=== PATIENT | male | born 1960 | race Two or more races ===

== ENCOUNTER 2019-04-27 17:41 | Inpatient (IN) | payer SELFPAY ==
[~2019-04-27] VITALS: Ht 180.3 cm; Wt 98.0 kg
[2019-04-27] MEDS ORDERED: ASPIRIN 325 MG TABLET PO ONE (18:00)
--- NOTE | 2019-04-27 18:00 | NUR ---
"CP started 1H ago going to left-back and jaw" PATIENT A/OX4, BREATHING EVEN AND UNLABORED, NO SOB NOTED, C/O CHEST PAIN. CHANGED INTO A GOWN, ATTACHED TO THE HVAC DESIGN ENGINEER.
[2019-04-27] MEDS ORDERED: METO25TA20 PO (18:28)
[2019-04-27] MEDS ORDERED: ATOR40TA PO (18:28)
[2019-04-27] MEDS ORDERED: LISI-603 PO (18:28)
[2019-04-27] MEDS ORDERED: ESOM40CA PO (18:28)
[2019-04-27] MEDS ORDERED: APIX5TAB PO (18:28)
[2019-04-27] MEDS ORDERED: TAMS-12 PO (18:28)
[2019-04-27] MEDS ORDERED: FURO-145 PO (18:28)
[2019-04-27] MEDS ORDERED: ASPI-1169 PO (18:28)
[2019-04-27] MEDS ORDERED: OXYC20TA58 PO (18:28)
[2019-04-27] MEDS ORDERED: CLOP75TA15 PO (18:28)
[2019-04-27] MEDS ORDERED: GABA-534 PO (18:28)
[2019-04-27] MEDS ORDERED: ASPIRIN 81 MG TAB.CHEW ONE (18:37)
--- NOTE | 2019-04-27 18:40 | NUR ---
UNABLE TO INSERT PERIPHERAL IV LINE, ATTEMPTED X3, STILL UNSUCCESSFUL, REQUESTED FOR A MIDLINE NURSE, PER NURSING CUTTING AND CREASING PRESS OPERATOR, MIDLINE NURSE IS NOT AVAILABLE UNTIL 11PM.
--- NOTE | 2019-04-27 18:57 | NUR ---
PER PATIENT, HE TOOK ASA 81MG THIS AM. INFORMED DR. MORALES, AND GAVE VERBAL ORDER TO GIVE ASA 162MG.
[2019-04-27] MEDS ORDERED: ASPIRIN 81 MG TAB.CHEW PO ONE (19:00)
--- NOTE | 2019-04-27 19:19 | NUR ---
ENDORSED TO KUN MCCOY
--- NOTE | 2019-04-27 19:46 | NUR ---
UNABLE TO OBTAIN IV ACCESS AT THIS TIME. AWARE.
--- NOTE | 2019-04-27 19:51 | NUR ---
BLOOD PRESSURE 67/46. MD AWARE.
[2019-04-27] MEDS ORDERED: ONDANSETRON HCL/PF 4 MG/2 ML VIAL IVP PRN (20:00)
[2019-04-27] MEDS ORDERED: HYDROCODONE/APAP 5/325MG 1 EACH TABLET PO PRN (20:00)
[2019-04-27] MEDS ORDERED: MAG HYDROX/AL HYDROX/SIMETH 30 ML UDC PO PRN (20:00)
[2019-04-27] MEDS ORDERED: Z GUARD REMEDY 2 OZ OINT TP PRN (20:00)
[2019-04-27] MEDS ORDERED: ACETAMINOPHEN 325 MG TABLET PO PRN (20:00)
[2019-04-27] MEDS ORDERED: MAGNESIUM HYDROXIDE 30 ML UDC PO PRN (20:00)
--- NOTE | 2019-04-27 20:15 | NUR ---
BLOOD DRAWN AND GIVEN TO LAB
--- NOTE | 2019-04-27 20:18 | NUR ---
BED ASSIGNMENT 309-1
[2019-04-27 20:22] LABS: BASOPHILS # (AUTO) 0.2 /CMM (0.0-0.2); BASOPHILS % (AUTO) 2.3 % (0.0-2.0); EOSINOPHILS % (AUTO) 12.8 % (0.0-6.0); HEMATOCRIT 31 % (39-51); HEMOGLOBIN 9.5 g/dL (13.5-17.5); LYMPHOCYTES # (AUTO) 1.7 /CMM (0.8-4.8); LYMPHOCYTES % (AUTO) 24.5 % (20.0-44.0); MEAN CORPUSCULAR HGB CONC 31 g/dl (31.0-36.0); MEAN CORPUSCULAR VOLUME 73 fL (80-96); MONOCYTES # (AUTO) 0.8 /CMM (0.1-1.30); MONOCYTES % (AUTO) 11.8 % (2.0-12.0); NEUTROPHILS # (AUTO) 3.4 /CMM (1.8-8.9); NEUTROPHILS % (AUTO) 48.6 % (43.0-81.0); PLATELET COUNT (AUTO) 232 /CMM (150-450); RED BLOOD CELL COUNT(AUTO) 4.16 MIL/uL (4.5-6.0)
[2019-04-27 20:26] LABS: CALCIUM, SERUM 8.4 mg/dL (8.5-10.1); CARBON DIOXIDE 30 mmol/L (21-32); CHLORIDE 99 mmol/L (98-107); CREATININE 2.6 mg/dL (0.6-1.3); GLUCOSE 122 mg/dL (74-106); POTASSIUM 3.4 mmol/L (3.5-5.1); SODIUM SERUM 139 mmol/L (136-145); UREA NITROGEN, BLOOD 30 mg/dL (7-18)
[2019-04-27] MEDS ORDERED: IV NS 0.9% 1,000 ML BAG IV ONE (20:30)
[2019-04-27 20:48] LABS: NEUTROPHILS % (MANUAL) 50 (42-76)
[2019-04-27 20:49] LABS: BASOPHILS % (MANUAL) 1 % (0.0-2.0); EOSINOPHILS % (MANUAL) 12 % (0-4); LYMPHOCYTES % (MANUAL) 25 % (16-48); MONOCYTES % (MANUAL) 12 % (0-11.0)
[2019-04-27] MEDS ORDERED: GABAPENTIN 400 MG CAPSULE PO SCH (21:30)
--- NOTE | 2019-04-27 21:42 | NUR ---
REPORT GIVEN TO NADINE BROWN FOR SAGAR
--- NOTE | 2019-04-27 22:00 | NUR ---
Patient is resting comfortably in bed with eyes closed. Easily aroused.
--- NOTE | 2019-04-27 23:07 | NUR ---
PT SIGNED CONSENT FORM FOR PICC LINE PLACEMENT
--- NOTE | 2019-04-27 23:31 | NUR ---
PICC LINE NURSE AT BEDSIDE
[2019-04-28] VITALS: BP 110/65
--- NOTE | 2019-04-28 00:02 | NUR ---
PT TRANSFERED TO 3RD FLOOR TELE
--- NOTE | 2019-04-28 00:05 | NUR ---
ADMISSION NOTE PATIENT ADMITTED TO TELEMETRY FOR CHEST PAIN BY DR. KAPOOR. NEW ORDERS RECIEVED. PATIENT C/O HAVING SUBSTERNAL CHEST PAIN RATED 10/10 THAT RADIATES TO HIS BACK AND JAW. ALSO C/O PAIN TO RIGHT LEG. PATIENT REPORTS HAVING CHRONIC PAIN AND STATES THAT THEY TOLD HIM HE COULD HAVE PAIN MEDICINE WHEN HE ARRIVED UPSTAIRS. PT SITTING IN BED, NO PERSPIRATION PRESENT. PATIENT IS IRRITABLE WITH OCCASIONAL GRIMACE BUT IN NO APPARENT ACUTE DISTRESS. BREATHING EVEN AND UNLABORED. PATIENT REQUESTING GABAPENTIN AND MS CONTIN HOME DOSAGES. INFORMED PATIENT I WOULD HAVE TO FOLLOW UP WITH MD BEFORE GIVING HIM THOSE MEDICATIONS VERBALIZED UNDERSTANDING. PT ORIENTED TO ROOM. BED DOWN LOCKED SRX2 TELE APPLIED PT IS SR IN THE 70'S. ADMISSION ASSESSMENT PERFORMED. WILL CONT TO MONITOR. WILL F/U WITH MD REGARDING PAIN MEDICATION. IV REMOVED FROM RIGHT FOOT/ANKLE. PATIENT HAD MIDLINE PLACED IN ER TO MARYANN THAT IS PATENT.
[2019-04-28] MEDS ORDERED: oxyCODONE HCL SR 20MG TAB.SR.12H PO ONE (01:12)
[2019-04-28] MEDS ORDERED: GABAPENTIN 400 MG CAPSULE PO ONE (01:15)
[2019-04-28 02:30] VITALS: BP 112/65
--- NOTE | 2019-04-28 02:40 | NUR ---
pt still co/o pain 01/31; new orders from areli. dr. singleton paged reguarding patient still complaining of pain to substernal chest that radiates to left jaw. and aos c/o pain of rediculopathy to right leg rates pain 01/31 dr. marrufo paged informed of new pain. patient reports allergy to norco and it causes itchiness. new orders recieved for diluadid ivp1mg q4hr prn severe pain.
[2019-04-28] MEDS: HYDROMORPHONE 1 MG/1 ML DISP.SYRIN IV PRN ×5 (03:12→20:29)
[2019-04-28 04:00] VITALS: BP 101/63
--- NOTE | 2019-04-28 06:57 | NUR ---
LEARNING COORDINATOR OPENING NOTES PATIENT AWAKE, A/O X4; PATIENT RESTING COMFORTABLY IN BED. BREATHING EVEN AND UNLABORED; NO S/S OF ACUTE RESPIRATORY DISTRESS NOTED; IV SITE INTACT AND PATENT, FLUSHING WELL; NO S/S OF REDNESS OR INFILTRATION NOTED; TELE MONITOR SR 80-85S. BED LOCKED IN LOWEST POSITION, SIDE RAILS UP X2. CALL LIGHT WITHIN EASY REACH; WILL CONTINUE TO MONITOR.
[2019-04-28] MEDS: PANTOPRAZOLE 40 MG TABLET.DR PO SCH (07:05)
[2019-04-28 07:35] LABS: BASOPHILS # (AUTO) 0.1 /CMM (0.0-0.2); BASOPHILS % (AUTO) 1.8 % (0.0-2.0); EOSINOPHILS % (AUTO) 16.7 % (0.0-6.0); HEMATOCRIT 31 % (39-51); HEMOGLOBIN 9.7 g/dL (13.5-17.5); LYMPHOCYTES # (AUTO) 1.4 /CMM (0.8-4.8); LYMPHOCYTES % (AUTO) 28.7 % (20.0-44.0); MEAN CORPUSCULAR HGB CONC 31 g/dl (31.0-36.0); MEAN CORPUSCULAR VOLUME 73 fL (80-96); MONOCYTES # (AUTO) 0.6 /CMM (0.1-1.30); MONOCYTES % (AUTO) 11.8 % (2.0-12.0); NEUTROPHILS # (AUTO) 1.9 /CMM (1.8-8.9); PLATELET COUNT (AUTO) 209 /CMM (150-450); RED BLOOD CELL COUNT(AUTO) 4.25 MIL/uL (4.5-6.0); WHITE BLOOD COUNT (AUTO) 4.7 K/uL (4.3-11.0)
[2019-04-28 07:55] LABS: CALCIUM, SERUM 7.6 mg/dL (8.5-10.1); CREATININE 1.7 mg/dL (0.6-1.3); MAGNESIUM 1.7 mg/dL (1.8-2.4); POTASSIUM 4.5 mmol/L (3.5-5.1)
[2019-04-28 08:00] VITALS: BP 126/83
[2019-04-28] MEDS ORDERED: IV NS 0.9% 1,000 ML IV PRN (08:22)
[2019-04-28] MEDS: APIXABAN 5 MG TABLET PO SCH ×2 (08:27→16:16)
[2019-04-28] MEDS: ASPIRIN 81 MG TAB.CHEW PO SCH (08:28)
[2019-04-28] MEDS: CLOPIDOGREL BISULFATE 75 MG TABLET PO SCH (08:28)
[2019-04-28 08:37] LABS: EOSINOPHILS % (MANUAL) 25 % (0-4); LYMPHOCYTES % (MANUAL) 26 % (16-48); MONOCYTES % (MANUAL) 7 % (0-11.0); NEUTROPHILS % (MANUAL) 42 (42-76)
[2019-04-28] MEDS: GABAPENTIN 400 MG CAPSULE PO SCH ×3 (08:44→16:17)
[2019-04-28] MEDS: oxyCODONE HCL SR 20MG TAB.SR.12H PO SCH ×2 (08:45→21:24)
[2019-04-28] MEDS ORDERED: LISINOPRIL (20MG) 20 MG TABLET PO SCH (09:00)
[2019-04-28] MEDS ORDERED: METOPROLOL TARTRATE 25 MG TABLET PO SCH (09:00)
[2019-04-28] MEDS ORDERED: FUROSEMIDE 20 MG TABLET PO SCH (09:00)
[2019-04-28] MEDS ORDERED: GABAPENTIN 300 MG CAPSULE PO SCH (09:00)
--- NOTE | 2019-04-28 10:34 | NUR ---
RN NOTES PER FREIGHT FLOW SALES LEADER Dr DAVILA D/C TELE TO MED/SURGE .
--- NOTE | 2019-04-28 11:40 | NUR ---
rn notes administered Diladis 1 mg /ml iv push for generalized pain per patient request, v/s taken bp-120/85,P- 78, r-19, continued monitoring.
[2019-04-28] MEDS ORDERED: Magnesium 1GM/D5W 100ML PREMIX 100 ML IV SCH (12:00)
[2019-04-28 12:01] LABS: IRON, SERUM 35 ug/dl (50-175); TOTAL IRON BINDING CAPACITY 357 ug/dl (250-450)
--- NOTE | 2019-04-28 13:35 | NUR ---
rn notes medication were administered for pain effective, patient scheduled stress test for tomorrow. patient sign consent form. Infusing ns at 125 ml/hr on right upper midline intact.
--- NOTE | 2019-04-28 15:30 | NUR ---
RN NOTES PATIENT REFUSED BELONGING, AND CONTRABAND TO BE CHECKED. PATIENT STATE "NOBODY SHOULD TOUCH MY BELONGING, I AM RESPONSIBLE FOR IT". CONTINUED MONITORING.
[2019-04-28 16:00] VITALS: BP 134/73
--- NOTE | 2019-04-28 16:18 | NUR ---
rn notes administered Dilaudid 1 mg /ml iv push for generalized pain 10/31 per patient request, v/s taken bp-134/73, p-81, R-16, continued monitoring.
[2019-04-28] MEDS ORDERED: ATORVASTATIN 40 MG TABLET PO SCH (18:00)
[2019-04-28] MEDS ORDERED: TAMSULOSIN 0.4 MG CAP.SR.24H PO SCH (18:00)
--- NOTE | 2019-04-28 19:24 | NUR ---
MS/RN OPENING NOTES: RECEIVED PATIENT AWAKE, A/O X4; RESTING COMFORTABLY IN BED. BREATHING EVEN AND UNLABORED; NO SOB NOTED. NO S/S OF ACUTE RESPIRATORY DISTRESS NOTED; IV SITE INTACT AND PATENT, FLUSHING WELL; NO S/S OF REDNESS OR INFILTRATION NOTED; BED IS LOCKED AND IN LOWEST POSITION, SIDE RAILS UP X2. ON TELE MONITOR WITH READING OF SR HR ON THE 80S. PT AWARE OF PROCEDURE TOMORROW. WILL BE NPO STATUS STARTING MIDNIGHT. CALL LIGHT WITHIN EASY REACH; WILL CONTINUE TO MONITOR PATIENT ACCORDINGLY.
--- NOTE | 2019-04-28 19:25 | NUR ---
MS/RN OPENING NOTES: RECEIVED PATIENT AWAKE, A/O X4; RESTING COMFORTABLY IN BED. BREATHING EVEN AND UNLABORED; NO SOB NOTED. NO S/S OF ACUTE RESPIRATORY DISTRESS NOTED; IV SITE INTACT AND PATENT, FLUSHING WELL; NO S/S OF REDNESS OR INFILTRATION NOTED; BED IS LOCKED AND IN LOWEST POSITION, SIDE RAILS UP X2. PT AWARE OF PROCEDURE TOMORROW. WILL BE NPO STATUS STARTING MIDNIGHT. CALL LIGHT WITHIN EASY REACH; WILL CONTINUE TO MONITOR PATIENT ACCORDINGLY.
[2019-04-28 20:00] VITALS: BP 156/88
--- NOTE | 2019-04-28 20:29 | NUR ---
MS/RN NOTES: PATIENT COMPLAINED OF PAIN LEVEL OF 9. GIVEN 1MG OF DILAUDID IV. WILL CONTINUE TO MONITOR AND ASSESS PT ACCORDINGLY.
--- NOTE | 2019-04-28 21:15 | NUR ---
TELE/RN NOTES: PATIENT IS BEING VERBALLY ABUSIVE. COMPLAINING ABOUT HIS SCHEDULED GABAPENTIN DOSES, STATING HE SHOULD GET HIS 3RD DOSE AT NIGHT. EXPLAINED TO PATIENT HE RECEIVED ALL 3 DOSES DURING DAY SHIFT ON TIMELY SCHEDULED BASED ON MD'S ORDER. PATIENT STILL YELLING AT STAFF. PER PT "I WILL FRANCISCO EVERYONE FOR MALPRACTICE. I TAKE MY OXYCONTIN WITH MY GABAPENTIN ALWAYS. ARE YOU CALLING ME AN IDIOT?" DESPITE RECEIVING HIS SCHEDULED OXYCONTIN 20MG MED. WILL CONTINUE MONITORING PT ACCORDINGLY.
[2019-04-29] VITALS: BP 168/109
--- NOTE | 2019-04-29 | NUR ---
TELE/RN NOTES: PATIENT REFUSED TO RECEIVE IV FLUIDS AT THIS TIME. STATES IT INTERRUPTS HIS SLEEPING TIME. WILL CONTINUE MONITORING.
[2019-04-29] MEDS: HYDROMORPHONE 1 MG/1 ML DISP.SYRIN IV PRN ×4 (00:29→12:31)
--- NOTE | 2019-04-29 00:29 | NUR ---
MS/RN NOTES: PATIENT COMPLAINED OF PAIN LEVEL OF 9. GIVEN 1MG OF DILAUDID IV. WILL CONTINUE TO MONITOR AND ASSESS PT ACCORDINGLY. PATIENT IS STABLE.
[2019-04-29 04:00] VITALS: BP 162/103
--- NOTE | 2019-04-29 04:29 | NUR ---
TELE/RN NOTES: PATIENT COMPLAINED OF PAIN LEVEL OF 9. GIVEN 1MG OF DILAUDID IV. WILL CONTINUE TO MONITOR AND ASSESS PT ACCORDINGLY. PATIENT IS STABLE.
--- NOTE | 2019-04-29 06:24 | NUR ---
TELE/RN CLOSING NOTES: PATIENT IS RESTING IN BED COMFORTABLY. NO SIGNIFICANT CHANGES IN CONDITION; BREATHING EVEN AND UNLABORED; NO SOB NOTED. NO S/S OF ACUTE RESPIRATORY DISTRESS NOTED; DENIES ANY C/O PAIN NOR DISCOMFORT. IV SITE INTACT AND PATENT, FLUSHING WELL; NO S/S OF REDNESS OR INFILTRATION NOTED; MANAGED PAIN THROUGH THE NIGHT. KEPT PT WARM AND COMFORTABLE. ALL NEEDS MET AT THIS TIME. MAINTAINED NPO STATUS. BED IS LOCKED AND IN LOWEST POSITION, SIDE RAILS UP X2. WILL BE NPO STATUS STARTING MIDNIGHT. CALL LIGHT WITHIN EASY REACH; WILL ENDORSE TO DAY SHIFT NURSE FOR SAGAR.
[2019-04-29 06:41] LABS: BASOPHILS # (AUTO) 0.1 /CMM (0.0-0.2); BASOPHILS % (AUTO) 1.5 % (0.0-2.0); EOSINOPHILS % (AUTO) 13.1 % (0.0-6.0); HEMATOCRIT 31 % (39-51); HEMOGLOBIN 9.4 g/dL (13.5-17.5); LYMPHOCYTES % (AUTO) 17.7 % (20.0-44.0); MEAN CORPUSCULAR HGB CONC 31 g/dl (31.0-36.0); MEAN CORPUSCULAR VOLUME 74 fL (80-96); MONOCYTES # (AUTO) 0.4 /CMM (0.1-1.30); MONOCYTES % (AUTO) 7.3 % (2.0-12.0); NEUTROPHILS # (AUTO) 3.3 /CMM (1.8-8.9); NEUTROPHILS % (AUTO) 60.4 % (43.0-81.0); PLATELET COUNT (AUTO) 197 /CMM (150-450); RED BLOOD CELL COUNT(AUTO) 4.18 MIL/uL (4.5-6.0); WHITE BLOOD COUNT (AUTO) 5.4 K/uL (4.3-11.0)
--- NOTE | 2019-04-29 06:53 | NUR ---
APPLIANCE COUNSELOR OPENING NOTES PATIENT RESTING COMFORTABLY IN BED; PATIENT AWAKE, A/O X4; BREATHING EVEN AND UNLABORED; NO S/S OF ACUTE RESPIRATORY DISTRESS NOTED; TELE MONITOR SR 80S; MARYANN IV MIDLINE, INTACT AND PATENT; FLUSHING WELL; NO S/S OF REDNESS OR INFILTRATION NOTED; BED LOCKED IN LOWEST POSITION; SAFETY PRECAUTIONS IN PLACE; SIDE RAILS UP X2; CALL LIGHT WITHIN EASY REACH; WILL CONTINUE TO MONITOR.
[2019-04-29 07:05] LABS: ALANINE AMINOTRANSFERASE 18 U/L (12-78); ALBUMIN 3.3 g/dL (3.4-5.0); ALKALINE PHOSPHATASE 99 U/L (46-116); ASPARTATE AMINOTRANSFERASE 13 U/L (15-37); BILIRUBIN,TOTAL 0.2 mg/dL (0.2-1.0); CALCIUM, SERUM 8.8 mg/dL (8.5-10.1); CARBON DIOXIDE 28 mmol/L (21-32); CHLORIDE 109 mmol/L (98-107); CREATININE 1.2 mg/dL (0.6-1.3); GLUCOSE 108 mg/dL (74-106); PHOSPHORUS 2.5 mg/dL (2.5-4.9); POTASSIUM 4.6 mmol/L (3.5-5.1); SODIUM SERUM 143 mmol/L (136-145); TOTAL PROTEIN, SERUM 6.4 g/dL (6.4-8.2); UREA NITROGEN, BLOOD 18 mg/dL (7-18)
[2019-04-29 08:00] VITALS: BP_SYST 119; BP_SYST 163; BP_DIAS 100; BP_DIAS 83
[2019-04-29] MEDS ORDERED: REGADENOSON 0.4 MG/5 ML DISP.SYRIN IVP ONE (08:00)
[2019-04-29 08:13] LABS: BAND % (MANUAL) 4 % (0.0-5.0); EOSINOPHILS % (MANUAL) 14 % (0-4); LYMPHOCYTES % (MANUAL) 16 % (16-48); MONOCYTES % (MANUAL) 7 % (0-11.0); NEUTROPHILS % (MANUAL) 59 (42-76)
[2019-04-29] MEDS: GABAPENTIN 400 MG CAPSULE PO SCH ×2 (08:15→12:31)
[2019-04-29] MEDS: PANTOPRAZOLE 40 MG TABLET.DR PO SCH (08:15)
[2019-04-29] MEDS: ASPIRIN 81 MG TAB.CHEW PO SCH (08:15)
[2019-04-29] MEDS: APIXABAN 5 MG TABLET PO SCH (08:17)
--- NOTE | 2019-04-29 08:20 | NUR ---
RN NOTES ADMINISTERED DILAUDID 1MG/ML IV PUSH FOR GENERALIZED PAIN 01/01 PER PATIENT REQUEST; V/S TAKEN BP-163/100, PULSE 82, RR 20, PATIENT WHEELED BY TECH FOR STRESS TEST.
[2019-04-29] MEDS: oxyCODONE HCL SR 20MG TAB.SR.12H PO SCH (08:22)
[2019-04-29] MEDS: CLOPIDOGREL BISULFATE 75 MG TABLET PO SCH (08:24)
[2019-04-29 11:14] LABS: APPEARANCE,URINE CLEAR (CLEAR); BILIRUBIN,URINE NEGATIVE (NEGATIVE); BLOOD, URINE NEGATIVE Ery/uL (NEGATIVE); KETONES,URINE NEGATIVE (NEGATIVE); LEUKOCYTE ESTERASE ,URINE NEGATIVE (NEGATIVE); NITRITE, URINE NEGATIVE (NEGATIVE); PH,URINE 6.5 (5.0-8.0); PROTEIN,URINE NEGATIVE (NEGATIVE); UGLUCOSE NEGATIVE (NEGATIVE); UROBILINOGEN,URINE 0.2 EU/dL (0.2)
[2019-04-29 11:17] LABS: COLOR,URINE STRAW (YELLOW)
[2019-04-29] MEDS ORDERED: SOD FERRIC GLUC 125 MG in IV NS 0.9% 100 ML IV SCH (14:00)
--- NOTE | 2019-04-29 14:40 | NUR ---
HOP TRAINER NOTES PATIENT DISCHARGED AT THIS TIME GOING HOME, SELF CARE. MEDICATION GIVEN TO PATIENT EFFECTIVE; NO ACUTE RESPIRATORY DISTRESS NOTED, AMBULATORY, SELF-CARE. PATIENT UNHAPPY ABOUT BEING DISCHARGED; DR. KAPOOR EXPLAINED TO PATIENT HE IS MEDICALLY STABLE AND ABLE TO GO HOME. ALL DISCHARGE PAPER WORK GIVEN TO PATIENT AND HE VERBALIZED UNDERSTANDING; PATIENT INVENTORY LOG SIGNED OFF; PATIENT REPORTED ALL BELONGINGS ARE PRESENT WITH HIM; DENIES ANY MISSING ITEMS. VITAL SIGNS STABLE; BP 140/80, PULSE 85; PATIENT SIGNED PAPERWORK, WILL FOLLOW UP WITH PRIMARY MD. ESCORTED PATIENT TO THE LOBBY FOR SAFETY. PATIENT LEFT HOSPITAL IN GOOD CONDITION, PATIENT NOTED HIS FRIENDS WILL MEET HIM ON HIS WAY HOME.
--- NOTE | 2019-04-29 14:40 | NUR ---
RN NOTES MARYANN MIDLINE REMOVED WITH NO COMPLICATIONS; IV TIP STILL INTACT; NO S/S OF INFILTRATION OR REDNESS; NO EDEMA NOTED AT IV SITE.
== END 2019-04-29 14:40 | disposition home or self-care (01) | DRG 73 ==
LOC: ER 17:43 → TELE 20:35 → MED 04-29 13:40
PROVIDERS: ADMIT Internal Medicine; ATTEND Internal Medicine
PROC: 05HB33Z Insertion of Infusion Device into Right Basilic Vein, Percutaneous Approach (ICD-10-PCS; principal; 2019-04-28)
DX: G90.8 Other disorders of autonomic nervous system (principal); N17.0 Acute kidney failure with tubular necrosis; E87.1 Hypo-osmolality and hyponatremia; F11.20 Opioid dependence, uncomplicated; I25.10 Atherosclerotic heart disease of native coronary artery without angina pectoris; N18.9 Chronic kidney disease, unspecified; I12.9 Hypertensive chronic kidney disease with stage 1 through stage 4 chronic kidney disease, or unspecified chronic kidney disease; D64.9 Anemia, unspecified; E66.9 Obesity, unspecified; E87.6 Hypokalemia; G89.29 Other chronic pain; N40.0 Benign prostatic hyperplasia without lower urinary tract symptoms; Z95.828 Presence of other vascular implants and grafts; Z95.0 Presence of cardiac pacemaker; Z86.718 Personal history of other venous thrombosis and embolism; Z86.711 Personal history of pulmonary embolism; Z79.899 Other long term (current) drug therapy; Z79.82 Long term (current) use of aspirin; Z79.02 Long term (current) use of antithrombotics/antiplatelets; Z79.01 Long term (current) use of anticoagulants; I70.0 Atherosclerosis of aorta; Z88.5 Allergy status to narcotic agent; E86.1 Hypovolemia; G62.9 Polyneuropathy, unspecified; I48.0 Paroxysmal atrial fibrillation
CPT/HCPCS: 36415; 71045-TC; 76770-TC; 80048-TC; 80053-TC; 80061-TC; 81000-TC; 83540-TC; 83735-TC; 84100-TC; 84484-TC; 85025-TC; 87081-TC; 93307-TC; A9502; G0378; J1170; J2785; J2916; J3475; J7030